=== PATIENT | male | born 1995 | race Caucasian/White ===

== ENCOUNTER 2024-06-28 14:03 | Emergency (ER) | payer SELFPAY ==
--- OUTSIDE RECORDS SUMMARY | 2024-06-28 14:07 | XMS_ITS | Clinical Summary ---
Author Organization [facility] Address [address] [place] [address] Care Team Providers Care Wrapper Sheeter Name Role Phone Piedad Aaron NP Primary Care Provider Allergies No known active allergies Medications No known medications Active Problems Problem Noted Date Diagnosed Date Head injury, initial encounter 08/25/2020 Thyroid cyst 03/14/2018 Abnormal PFT 01/19/2018 Overview (01/19/2018): Possible extrathoracic obstruction Hay fever 09/05/2013 Overview (08/24/2016): Allergic rhinitis due to pollen Resolved Problems Problem Noted Date Diagnosed Date Resolved Date Cigarette nicotine dependenc e without complication 12/15/2017 03/29/2019 Immunizations Name Administration Dates Next Due DTP / HiB 01/30/1996,1995,1995 Hep B, Adolescent or Pediatric 01/30/1996,1995,1995 Influenza, Quadrivalent, Spl it, Preservative Free, Intramuscular 03/29/2019 Influenza, Unspecified 03/22/2017 OPV 1995,1995 Tdap 03/29/2019 Medical History Medical History Date Comments Cigarette nicotine dependence without complicati on 12/15/2017 Family History Medical History Relation Name Comments Hypertension Other Family history of Hypertension; Cancer Paternal Grandmother Relation Name Status Comments Father Alive Mother Alive Other Paternal Grandmother Social History Tobacco Use Types Packs/Day Years Used Date Smoking Tobacco: Former Cigarettes Q uit: 03/29/2018 E-cigarettes Smokeless Tobacco: Never Alcohol Use Standard Drinks/Week Comments No 0 (1 standard drink = 0.6 oz pur e alcohol) PHQ-2 Answer Date Recorded PHQ-2 Score 0 03/29/2019 Sex and Gender Information Value Date Recorded Sex Assigned at Not on file 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 Gender Identity Not on file Sexual Orientation Not on file Obstetrics History Last Filed Vital Signs Vital Sign Reading Time Taken Comments Blood Pressure 119/69 08/25/2020 3:55 PM CDT Pulse 90 08/25/2020 3:55 PM CDT Temperature 37.6 C (99.6 F) 08/25/2020 3:55 PM CDT Respiratory Rate 16 08/25/2020 3:55 PM CDT Oxygen Saturation 98% 08/25/2020 3:55 PM CDT Inhaled Oxygen Concentration - - Weight 54.4 kg (120 lb) 08/25/2020 3:55 PM CDT Height 172.7 cm (5' 8 ) 08/25/2020 3:55 PM CDT Body Mass Index 18.25 08/25/2020 3:55 PM CDT Plan of Treatment Not on file Insurance Socialance [facility] [address] [id number] Care Teams Wrapper Sheeter Relationship Specialty Start Date End Date Piedad Aaron NP PCP - General Family Medicine 08/26/20
--- OUTSIDE RECORDS SUMMARY | 2024-06-28 14:07 | XMS_ITS | Referral Summary ---
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
[2024-06-28 14:12] VITALS: BP 118/83; PULSE 100; RESP 16; TEMP 37.6; O2SAT 100
--- NOTE | 2024-06-28 14:20 | ED.DENTAL ---
HPI - Dental/Oral General Chief complaint: Dental/Oral Stated complaint: tooth pain Time Seen by Provider: 06/28/24 14:20 Source: patient Mode of arrival: ambulatory Limitations: no limitations History of Present Illness HPI Narrative: 28-year-old male presents with complaint of left lower dental pain. Taking Advil and states this is controlling pain. Goes to [facility] but has not been able to get into appointment. States he is aware that he has a rotten wisdom tooth. All systems reviewed and negative except as noted above. Related Data Home Medications ?Medication ?Instructions ?Recorded ?Confirmed ?Last Taken ?Type No Home Medications 06/28/24 06/28/24 Unknown History Allergies Allergy/AdvReac Type Severity Reaction Status Date / Time No Known Allergies Allergy Unverified 06/28/24 14:13 Review of Systems Review of Systems: CONSTITUTIONAL: Denies fever, chills, or sweats. EYES: Denies visual changes, redness, or discharge. ENT: Denies rhinorrhea, congestion, sore throat, or otalgia. Reports left lower dental pain. CARDIOVASCULAR: Denies chest pain, palpitations, or edema. RESPIRATORY: Denies cough or dyspnea. GASTROINTESTINAL: Denies abdominal pain, nausea, vomiting, or diarrhea. GENITOURINARY: Denies dysuria or hematuria. SKIN: Denies rash or itching. MUSCULOSKELETAL: Denies back pain, joint pain, or myalgia. NEUROLOGIC: Denies headache, numbness, or weakness. PSYCHIATRIC: Denies anxiety or depression. All other systems reviewed are negative, except as documented in HPI. PMFSH Comments At time of signature, agree with nursing past medical, surgical, social and family history. There is no relevant family history pertinent to the presenting complaint. Exam Narrative: GENERAL: This is a well-nourished, well-developed patient, in no apparent distress. HEAD: normocephalic, atraumatic. EYES: PERRL. Sclera clear/white. Vision is grossly intact. EARS: External ears normal NOSE: External nose normal MOUTH: tooth #17 decayed, broken down to gumline with surrounding erythema and swelling. NECK: Neck supple, non-tender without lymphadenopathy, masses or thyromegaly. CARDIOVASCULAR: Regular rate and rhythm without murmurs, gallops, or rubs. RESPIRATORY: Clear to auscultation. Breath sounds equal bilaterally. No wheezes, rales, or rhonchi. SKIN: warm, Dry, intact with no suspicious lesions or rash, good texture and turgor. NEURO: awake, alert, and oriented to person, place and time. There were no obvious focal neurologic abnormalities. EXTREMITIES: No joint tenderness, effusion, or edema noted. Course Course Level of Care: Express Care Visit Vital Signs Vital signs: Vital Signs Temperature 37.6 C 06/28/24 14:12 Pulse Rate 100 06/28/24 14:12 Respiratory Rate 16 06/28/24 14:12 Blood Pressure 118/83 06/28/24 14:12 Pulse Oximetry 100 06/28/24 14:12 Oxygen Delivery Room Air 06/28/24 14:12 Temperature 37.6 C 06/28/24 14:12 Pulse Rate 100 06/28/24 14:12 Respiratory Rate 16 06/28/24 14:12 Blood Pressure 118/83 06/28/24 14:12 Pulse Oximetry 100 06/28/24 14:12 Oxygen Delivery Room Air 06/28/24 14:12 Reviewed MDM - Dental/Oral MDM Narrative Medical decision making narrative: will treat patient with amoxicillin for dental infection. recommend follow-up with a dentist. Patient is well-appearing, nontoxic. Please be advised this is a medical document. It is intended for [id number] communication. It is written in medical language and may contain unfamiliar abbreviations or verbiage. Medical documents are intended to carry relevant information, facts as evident, and the clinical opinion of the practitioner at the time of the encounter. This report may have been done utilizing a voice recognition system. Attempts have been made to correct errors. However, there may be uncorrected grammatical, spelling, and recognition errors present. The file time of this note does not necessarily represent the time of service. Discharge Plan Discharge Clinical Impression: Dental infection Patient Disposition: Home, Self-Care Condition: Stable Instructions: Antibiotic Form, Toothache (ED) Additional Instructions: take antibiotic as prescribed until gone. Alternate between ibuprofen and Tylenol every 4 hours to treat pain. Follow-up with dentist at next available appointment. Patient Language: St Helenian Prescriptions: New amoxicillin 875 mg tablet 875 mg PO Q12H 10 Days Qty: 20 0RF No Action No Home Medications Follow-up/Referrals: PHYSICIAN,MOVIE PROJECTIONIST [Primary Care Provider] - Time of Disposition: 14:24
== END 2024-06-28 14:30 | disposition home or self-care (01) ==
PROVIDERS: Emergency Provider Nurse Practitioner Family
DX: K04.7 Periapical abscess without sinus (principal)
CPT/HCPCS: 99213; G0463